=== PATIENT | male | born 2000 | race Asian ===

== ENCOUNTER 2020-06-01 12:37 | Emergency (ER) | payer SELFPAY ==
[~2020-06-01] VITALS: Ht 170.1 cm; Wt 106.8 kg
--- NOTE | 2020-06-01 13:07 | ED Neck-Back Pain/Injury ---
General Chief Complaint: Back Problems Stated Complaint: NECK/BACK PAIN Source of Information: Patient Exam Limitations: No Limitations History of Present Illness Date Seen by Provider: Jun 01, 2020 Time Seen by Provider: 12:39 Initial Comments The patient is a pleasant 20-year-old male presents for evaluation of neck and upper back pain which occurred after attempting to perform a back flip on a trampoline yesterday. He states that he landed on the trampoline surface with his neck flexed forward and his chin up against his chest. He states that he felt a pop in either his neck or back. He denies loss of consciousness, focal weakness or numbness, chest pain or shortness of breath, dizziness, vision changes, or any other complaints. He is alert and oriented 4, calm, and appears to be in no distress at this time. Timing/Duration: 12-24 Hours Severity: Moderate Pain/Injury Location: Back, Neck Method of Injury: Fall Modifying Factors: Improves With Movement (makes it worse), Improves With Rest (makes it better) Associated Symptoms: denies symptoms Allergies and Home Medications Allergies Coded Allergies: No Known Drug Allergies (Unverified , 06/01/20) Patient Home Medication List Home Medication List Reviewed: Yes Review of Systems Constitutional: no symptoms reported EENTM: no symptoms reported Respiratory: no symptoms reported Cardiovascular: no symptoms reported Gastrointestinal: no symptoms reported Genitourinary: no symptoms reported Musculoskeletal: back pain, neck pain Skin: no symptoms reported Psychiatric/Neurological: No Symptoms Reported All Other Systems Reviewed Negative Unless Noted: Yes Past Ikbygag-Augwgi-Siknwd Hx Past Med/Social Hx: Reviewed Nursing Past Med/Soc Hx Patient Social History Alcohol Use: Occasionally Uses Recreational Drug Use: No Smoking Status: Never a Smoker 2nd Hand Smoke Exposure: No Recent Hopitalizations: No Physical Abuse: No Sexual Abuse: No Mistreated: No Fear: No Seasonal Allergies Seasonal Allergies: No Past Medical History Surgeries: No Respiratory: No Cardiac: No Neurological: No Genitourinary: No Gastrointestinal: No Musculoskeletal: No Endocrine: No HEENT: No Cancer: No Psychosocial: No Integumentary: No Blood Disorders: No Physical Exam Vital Signs Vital Signs - First Documented 06/01/20 12:43 Temp 36.2 Pulse 72 Resp 16 B/P (MAP) 133/66 (88) Pulse Ox 98 O2 Delivery Room Air Capillary Refill : Height, Weight, BMI Height: '" Weight: lbs. oz. kg; BMI Method: General Appearance: No Apparent Distress, WD/WN HEENT: PERRL/EOMI, Normal ENT Inspection, Pharynx Normal Neck: Full Range of Motion, Normal Inspection, Tender Midline (C6-7) Cardiovascular: Regular Rate, Rhythm, No Edema, No Murmur, Normal Peripheral Pulses Respiratory: Lungs Clear, Normal Breath Sounds, No Accessory Muscle Use, No Respiratory Distress Back: Vertebral Tenderness (T3-4 and paraspinal muscles, no step-off or deformity) Extremity: Normal Capillary Refill, Normal Inspection, Normal Range of Motion, Non Tender Neurologic/Psychiatric: Alert, Oriented x3, No Motor/Sensory Deficits, Normal 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 Advised the patient not to attempt flips on trampolines in the future. Advised patient to follow-up with his PCP in the next 2-3 days and to return to the emergency Department immediately for new or worsening symptoms. The patient expresses verbal understanding and agreement with the plan and is stable for discharge. Diagnostic Imaging Diagonstic Imaging: CT Comments [facility], [place] NAME: GWENDOLYN GRAHAM Yakov [facility] REC#: [id number] PT STATUS: REG ER : 2000 PHYSICIAN: LUCY BARCLAY DO ADMIT DATE: 06/01/20/ER FS Draft Date of Exam:06/01/20 CT CERVICAL/THORACIC SPINE WO INDICATION: Neck pain and upper back pain. Axial imaging through the cervical and thoracic spine was performed without contrast. Sagittal and coronal reformations were also performed. CT CERVICAL SPINE: Alignment is normal. No fracture or subluxation is identified. Prevertebral tissues are normal. Odontoid is intact. IMPRESSION: 1. No acute bony abnormality is identified. CT THORACIC SPINE: Curvature and alignment of the thoracic spine are normal. Vertebral body heights are maintained. No fractures are seen. The paraspinous tissues are unremarkable. IMPRESSION: 1. No acute bony abnormality is detected. Dictated on workstation # [id number] Dict: 06/01/20 1334 Trans: 06/01/20 1341 [facility] [id number] Interpreted by: THALIA HOPKINS MD Electronically signed by: Departure Impression Primary Impression: Cervical strain, acute Additional Impression: Thoracic myofascial strain Disposition: 01 HOME, SELF-CARE Condition: Stable Departure-Patient Inst. Decision time for Depature: 13:46 Referrals: [facility] [place] Patient Instructions: Neck Sprain (DC), Muscle Strain (DC) Add. Discharge Instructions: Follow-up with your doctor in the next 2-3 days. Return to the emergency Department immediately for new or worsening symptoms. Do not attempt flips in the future on a trampoline. Take ibuprofen or Tylenol for pain relief is needed. LUCY BARCLAY DO Jun 01, 2020 13:07
--- NOTE | 2020-06-01 13:41 | Diagnostic Imaging Report ---
INDICATION: Neck pain and upper back pain. Axial imaging through the cervical and thoracic spine was performed without contrast. Sagittal and coronal reformations were also performed. CT CERVICAL SPINE: Alignment is normal. No fracture or subluxation is identified. Prevertebral tissues are normal. Odontoid is intact. IMPRESSION: 1. No acute bony abnormality is identified. CT THORACIC SPINE: Curvature and alignment of the thoracic spine are normal. Vertebral body heights are maintained. No fractures are seen. The paraspinous tissues are unremarkable. IMPRESSION: 1. No acute bony abnormality is detected. Dictated by: Dictated on workstation # [id number]
[2020-06-01 13:53] VITALS: BP 133/66
== END 2020-06-01 13:49 | disposition home or self-care (01) ==
LOC: ER FS 12:40
DX: S29.012A Strain of muscle and tendon of back wall of thorax, initial encounter (principal); S16.1XXA Strain of muscle, fascia and tendon at neck level, initial encounter; X50.9XXA Other and unspecified overexertion or strenuous movements or postures, initial encounter; Y93.44 Activity, trampolining
CPT/HCPCS: 72125; 72128